=== PATIENT | female | born 1990 | race Caucasian/White ===

== ENCOUNTER 2020-06-24 09:59 | Emergency (ER) | payer MEDICAID ==
--- NOTE | 2020-06-24 10:12 | EDM.PDOC ---
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 Pt described the pain as a deep sharp ache all across the low back. Pt rates the pain 8/10. The pain does radiate into the B/L buttocks. Denies loss of bowel or bladder control, saddle area numbness, or motor weakness. Admits to tightness and spasms. Nothing alleviates the pain. Movement of the low back aggravates the pain. Pt states that there is no chance of (has not been sexually active for many months). 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 [No Known Home Meds] 06/24/20 [History] Social & Family History - Living Situation & Occupation Occupation: Employed ED ROS GENERAL - Review of Systems Review Of Systems: Comprehensive ROS is negative, except as noted in HPI. ED EXAM,LOWER BACK PAIN/INJURY - Physical Exam Exam: See Below Exam Limited By: No Limitations General Appearance: Alert, WD/WN, No Apparent Distress Head: Atraumatic, Normocephalic Neck: Normal Inspection, Non-Tender, Full Range of Motion Respiratory/Chest: No Respiratory Distress Cardiovascular: Normal Peripheral Pulses, Regular Rate, Rhythm GI/Abdominal: Normal Bowel Sounds, Soft, Non-Tender, No Organomegaly, No Distention, No Abnormal Bruit, No Mass Back Exam: Decreased Range of Motion (Lumbar, Lumbosacral region), Muscle Spasm, Paraspinal Tenderness (Lumbar), Vertebral Tenderness (generalized lumbar). No: CVA Tenderness (L), CVA Tenderness (R) Extremities: Normal Inspection, Normal Range of Motion, Non-Tender, No Pedal Edema, Normal Capillary Refill Neurological: Alert, Normal Mood/Affect, Normal Dorsiflexion, CN II-XII Intact, Normal Plantar Flexion, Normal Reflexes, No Motor/Sensory Deficits, Oriented x 3, Difficulty Walking (Due to pain). No: Straight Leg Raise (L), Straight Leg Raise (R), Saddle Anesthesia Psychiatric: Normal Affect, Normal Mood Skin Exam: Warm, Dry, Intact, Normal Color, No Rash Course - Vital Signs Last Recorded V/S: Last Vital Signs Temp 98.1 F 06/24/20 10:25 Pulse 74 06/24/20 10:25 Resp 14 06/24/20 10:25 BP 142/60 H 06/24/20 10:25 Pulse Ox 99 06/24/20 10:25 - Orders/Labs/Meds Meds: Medications Discontinued Medications Generic Name Dose Route Start Last Admin Trade Name Freq PRN Reason Stop Dose Admin Hydrocodone Bitart/Acetaminophen 1 tab 06/24/20 10:20 06/24/20 10:34 [place] 325-10 Mg PO 06/24/20 10:21 1 tab ONETIME ONE Administration Cyclobenzaprine HCl 10 mg 06/24/20 10:19 06/24/20 10:34 Flexeril PO 06/24/20 10:20 10 mg ONETIME ONE Administration Ketorolac Tromethamine 60 mg 06/24/20 10:19 06/24/20 10:33 Toradol IM 06/24/20 10:20 60 mg ONETIME ONE Administration - Radiology Interpretation Free Text/Narrative:: [facility] Final Radiology Report Call: [phone] assistance Online chat: [email or web address] Name: JORGE L RODRIGUEZ Age: 29Years F Date: 06/24/2020 SSN: -- : [id number] Study: CR LUMBAR SPINE 2 OR 3V Requesting Physician: GEOVANNA JACKSON Images: 2 Addl Studies: Provided Clinical History: Low back pain, lifting injury at work Contrast: Contrast Medium: Contrast Amount: Contrast Method: CONFIDENTIALITY STATEMENT This report is intended only for use by the referring physician, and only in accordance with law. If you received this in error, call [phone]. Page 1 of 1 PROCEDURE INFORMATION: Exam: XR Lumbosacral Spine Exam date and time: 06/24/2020 10:41 AM Age: 29 years old Clinical indication: Other: Low back pain, lifting injury at work TECHNIQUE: Imaging protocol: XR of the lumbosacral spine. Views: 2 or 3 views. COMPARISON: No relevant prior studies available. FINDINGS: Bones/joints: There is anatomic alignment. There are 5 [id number]-[id number] vertebral bodies. There is preservation of the vertebral body disc spaces and heights. There is no evidence of spondylolysis or spondylolisthesis. No abnormal bone density. Soft tissues: Unremarkable. IMPRESSION: Normal radiographic exam of the lumbar spine. Thank you for allowing us to participate in the care of your patient. Dictated and Authenticated by: Radha Galvez MD 06/24/2020 10:48 AM Central Time ([place] & [place]) Departure - Departure Time of Disposition: 11:06 Disposition: Home, Self-Care 01 Condition: Good Clinical Impression: Acute myofascial strain of lumbar region Qualifiers: Encounter type: initial encounter Qualified Code(s): S39.012A - Strain of muscle, fascia and tendon of lower back, initial encounter - Discharge Information *PRESCRIPTION DRUG MONITORING PROGRAM REVIEWED*: Not Applicable *COPY OF PRESCRIPTION DRUG MONITORING REPORT IN PATIENT PRINCE: Not Applicable Instructions: Lumbosacral Strain Forms: ED Department Discharge Additional Instructions: Rx: Naprosyn 500mg Rx: Cyclobenzaprine 10mg *Do not drive or work while under the influence of this medication. Alternate heat (moist hot packs) and ice packs to area of low back pain. Light activity as tolerated. Follow up in clinic in 5 to 7 days for recheck. Sepsis Event Note (ED) - Focused Exam Vital Signs: Vital Signs Temp Pulse Resp BP Pulse Ox 06/24/20 10:25 98.1 F 74 14 142/60 H 99
[2020-06-24] MEDS ORDERED: Cyclobenzaprine 10 MG Tab PO ONE (10:19)
[2020-06-24] MEDS ORDERED: Ketorolac 30 MG/ML SDV IM ONE (10:19)
[2020-06-24] MEDS ORDERED: Acetaminophen/HYDROcodone 325-10 MG Tab PO ONE (10:20)
--- NOTE | 2020-06-24 10:48 | CR ---
PROCEDURE INFORMATION: Exam: XR Lumbosacral Spine Exam date and time: 06/24/2020 10:41 AM Age: 29 years old Clinical indication: Other: Low back pain, lifting injury at work TECHNIQUE: Imaging protocol: XR of the lumbosacral spine. Views: 2 or 3 views. COMPARISON: No relevant prior studies available. FINDINGS: Bones/joints: There is anatomic alignment. There are 5 [id number] vertebral bodies. There is preservation of the vertebral body disc spaces and heights. There is no evidence of spondylolysis or spondylolisthesis. No abnormal bone density. Soft tissues: Unremarkable. IMPRESSION: Normal radiographic exam of the lumbar spine.
== END 2020-06-24 11:50 | disposition home or self-care (01) ==
LOC: DL.ED 09:59
DX: S39.012A Strain of muscle, fascia and tendon of lower back, initial encounter (principal); X50.0XXA Overexertion from strenuous movement or load, initial encounter; Y92.129 Unspecified place in nursing home as the place of occurrence of the external cause; Y99.0 Civilian activity done for income or pay
CPT/HCPCS: 72100; 96372; 99283; A9270; J1885